=== PATIENT | male | born 1945 | race Caucasian/White ===

== ENCOUNTER 2020-01-24 13:31 | Outpatient (CLI) | payer MEDICARE, SELFPAY ==
--- NOTE | 2020-01-24 13:36 | ECG_ITS ---
Measurements Intervals [place] Rate: 70 P: 39 [place]: 189 QRS: -59 QRSD: 104 T: 76 QT: 380 QTc: 410 Interpretive Statements SINUS RHYTHM LEFT ANTERIOR FASCICULAR BLOCK BORDERLINE ST ABNORMALITY- HIGH LATERAL LEADS BASELINE WANDER- V2 ABNORMAL ECG Electronically Signed On 01-24-2020 15:26:03 CDT by Mario Tirado D.O.
[2020-01-24 14:13] LABS: Anion Gap 5 mmol/L (8-16); Blood Urea Nitrogen 14 mg/dL (9-20); Calcium 9.4 mg/dL (8.4-10.2); Carbon Dioxide 31 mmol/L (22-30); Chloride 102 mmol/L (98-107); Estimated Glomerular Filt Rate > 60; Glucose 109 mg/dL (75-110); Potassium 4.3 mmol/L (3.4-5.0); Sodium 138 mmol/L (137-145)
== END 2020-01-24 13:32 | disposition home or self-care (01) ==
PROVIDERS: PCP Internal Medicine; Visit Provider Orthopaedic Surgery
DX: I10 Essential (primary) hypertension (principal); I44.4 Left anterior fascicular block; R94.31 Abnormal electrocardiogram [ECG] [EKG]
CPT/HCPCS: 36415; 80048; 93005

== ENCOUNTER 2020-01-26 00:56 | Outpatient (CLI) | payer MEDICARE, SELFPAY ==
[2020-01-26 20:48] LABS: SARS-CoV-2 RNA PCR Negative
== END 2020-01-26 00:57 | disposition home or self-care (01) ==
LOC: ANHCOVIDDT 00:57
PROVIDERS: PCP Internal Medicine; Visit Provider Orthopaedic Surgery
DX: Z01.812 Encounter for preprocedural laboratory examination (principal); Z11.59 Encounter for screening for other viral diseases
CPT/HCPCS: 87635; C9803; U0003

== ENCOUNTER 2020-01-28 00:15 | Day surgery (SDC) | payer MEDICARE, SELFPAY ==
[2020-01-24 08:36] VITALS: BMI 37.1
[2020-01-28] VITALS (7 sets, daily range): BP systolic 101–132; BP diastolic 51–78; PULSE 62–81; RESP 13–20; TEMP 35.9–36.1; O2SAT 93–98
--- NOTE | 2020-01-28 07:21 | P.PNAN_ITS ---
Anes - Initial Pre Proc Eval Procedure: Operation Date: 01/28/20 08:00 Proposed Procedures p Left Shoulder Arthroscopic Rotator Cuff Repair - Jonnathan Becker MD Date/Time: 01/28/20 07:21 Surgeon: Jonnathan Becker MD Pre Op Diagnosis: Left Rotator Cuff Tear Patient Data Age: 74 Gender: M Height: 6 ft Weight: 124.3 kg Last Vital Signs Temp 35.9 C L 01/28/20 07:19 Pulse 62 01/28/20 07:19 BP 132/78 01/28/20 07:19 Pulse Ox 97 01/28/20 07:19 Allergies Allergy/AdvReac Type Severity Reaction Status Date / Time codeine Allergy Unknown Nausea and Verified 01/24/20 12:57 Vomiting Home Medications Medication Instructions Recorded Confirmed Type leflunomide 20 mg tablet 20 mg PO DAILY 10/25/19 01/24/20 History tramadol 50 mg tablet 50 mg PO Q6H PRN 10/25/19 01/28/20 History fluoxetine 20 mg PO QAM 01/24/20 01/28/20 History furosemide 20 mg PO DAILY 01/24/20 01/28/20 History lisinopril 10 mg PO QAM 01/24/20 01/28/20 History metformin 500 mg PO QAM 01/24/20 01/28/20 History metoprolol succinate 25 mg PO QAM 01/24/20 01/28/20 History rosuvastatin 5 mg PO DAILY 01/24/20 01/28/20 History tamsulosin 0.4 mg PO DAILY 01/24/20 01/28/20 History Patient hx anesthesia problems: none Family hx anesthesia problems: none [facility] Past Medical History Medical History Arthritis Fibromyalgia Glaucoma Neuropathy Psoriasis Psoriatic arthritis Rotator cuff tear, left Spinal stenosis Tendonitis of left rotator cuff Surgical History Surgical History History of arthroscopic knee surgery (~2008) History of carpal tunnel release (~1993) History of cholecystectomy (~1998) History of knee replacement (~2012) Family History Family History Father Family history of lung cancer Social History Social History Smoking status: Never smoker Alcohol intake: current Alcohol use details: 3 BEERS PER MONTH Living arrangements: with family Spiritual care concerns: No Anes - Eval Final PreProcedure Day of Procedure 01/28/20 07:21 Patient weight: obese Heart: regular rate and rhythm Lungs: clear to auscultation Airway: Mallampati scale class 1 Neurological: alert and oriented Last oral intake: >/= 8 hours ASA classification: III Emergent: no Anesthetic plan: proceed Anesthesia type and monitoring: general ETT and standard monitoring Informed Consent: The patient's anesthetic plan and its attendant risks and benefits were discussed with the patient/family/POA. Questions were solicited and answers provided to the satisfaction of the patient/family/POA.
[2020-01-28] MEDS: LACTATED RINGERS 1,000 ML 30 ML IV CONT ×2 (07:27→09:58)
[2020-01-28] MEDS: ACETAMINOPHEN 500 MG TABLET 1000 MG PO (07:38)
[2020-01-28] MEDS: KETOROLAC 15 MG/ML VIAL (*BKC) IV PUSH (07:38)
--- NOTE | 2020-01-28 07:39 | WPDHPUPDATE1 ---
History and Physical Update Update Date/Time: 01/28/20 07:39 History and Physical has been reviewed, including an updated exam of the patient. There are NO changes in the patient's condition. Risks, benefits, and alternatives have been discussed and questions answered. Patient agrees to proceed with procedure.
--- NOTE | 2020-01-28 07:53 | WPDANESPNB ---
Anes - Peripheral Nerve Block Date/Time: 01/28/20 07:53 I have discussed with the patient/family/POA the placement of a peripheral nerve block for post-operative pain management, including associated risks, benefits, complications, and side effects. Alternative methods of post-operative analgesia were detailed. Questions were solicited and answers provided to the satisfaction of the patient/family/POA. Time-Out: A pre-procedural Time-Out was completed immediately before starting the procedure and confirmed: Patient Identification, Site, Procedure, Patient Position and the Availability of Requisite Equipment. Clinical Indications: Acute post-operative pain management requested by the operative surgeon. Nerve Block Insertion Note Anes-nerve block: interscalene left Patient position: other (sitting) Skin prep: chlorhexidine Needle: 22 gauge, stimulating, insulated echogenic needle. Needle length: 50 mm Technique: nerve stimulation lost at (mA) (0.3) Technique comment: mid2mg,[id number] Injectate: bupivacaine 0.5% with epi 5 mcg/ml (30ml) Observations: tolerated well Complications: none Procedure start time:: 739 Procedure end time:: 745
[2020-01-28] MEDS: ceFAZolin 3 GM/D5W 100 ML 100 ML IVPB (07:58)
[2020-01-28] MEDS: BUPIVACAINE/EPINEPHRINE 0.5% 30 ML VIAL INFILTRATE (08:38)
--- NOTE | 2020-01-28 10:27 | P.OP_ITS ---
Procedure Note - Detailed Date of procedure: 01/28/20 Pre-op diagnosis: Left Rotator Cuff Tear Post-op diagnosis: other (1. Partial-thickness rotator cuff tear. 2. biceps tendinopathy. 3. Impingement syndrome.) Procedure performed: 1. Arthrosocopic rotator cuff repair. 2. Arthroscopic biceps tenotomy. 3. Arthroscopic subacromial decompression. Description of procedure: Extensive debridement was performed of the intra- articular biceps which was frayed and partially torn. Tenotomy was performed. The articular subscapularis and supraspinatus showed only mild splitting without definite tearing. Extensive thickened bursa was excised in the subacromial space along with decompression of the acromion and Co planing of the distal clavicle. High [place] grade partial-thickness tearing of the bursal side rotator cuff medial and anterior was repaired with 2 [id number] sutures. This area appeared to correspond with impingement at the anterior acromion. The remaining lateral rotator cuff, supraspinatus, and posterior cuff appeared normal. Anesthesia: GETA Surgeon: Jonnathan Becker MD Estimated blood loss (mL): 20 Complications: None Condition: stable Disposition: PACU Findings: Operative detail: Preoperative antibiotics were given. An interscalene block was administered in the preoperative area. The patient was bought brought to the operating room. A general anesthetic was administered. The patient was carefully positioned in the beach chair position. The head and neck were carefully positioned. The non operative extremity was also carefully positioned. The shoulder was prepped and draped in the usual sterile fashion. Examination was performed. Standard posterior and anterior arthroscopic portals were established. Inflow achieved with the arthroscopic pump using saline and epinephrine. The glenohumeral joint was carefully inspected. The biceps showed extensive fraying. A tenotomy was performed. The subacromial. The subscapularis showed mild longitudinal splitting without significant detachment or retraction.. Attention was turned to the subacromial space. A complete bursectomy was performed. Tissue was quite thickened particularly anteromedially. There appeared to be significant impingement and some downsloping of the anterior acromion. Previous acromioplasty was noted. A modest acromioplasty was performed. The distal clavicle was also co planed, as this area appeared to be generally involved in some degree of impingement. The tear was mid grade splitting of the more anterior and medial tissue. Two ortho cord sutures were passed [id number] through the tendon. An anterior grade passing device was used followed by retrograde suture retrieval. Accessory portals were placed laterally and to assist with triangulation. The sutures were tied arthroscopically. The arthroscopic instruments were removed. The wounds were closed with 3-0 Monocryl subcuticular suture and steri strips. There were no complications. A sling was applied and the patient brought to the recovery room.
--- NOTE | 2020-01-28 11:22 | SUR.PHASEII ---
PT ASSISTED TO GET DRESSED; ONE RN HOLDING LEFT ARM.
== END 2020-01-28 11:31 | disposition home or self-care (01) ==
PROVIDERS: PCP Internal Medicine; Visit Provider Orthopaedic Surgery
PROC: (CPT 29805; principal; 2020-01-28 08:00)
DX: M75.102 Unspecified rotator cuff tear or rupture of left shoulder, not specified as traumatic (principal); M75.82 Other shoulder lesions, left shoulder; M75.42 Impingement syndrome of left shoulder; G89.18 Other acute postprocedural pain; M79.7 Fibromyalgia; G62.9 Polyneuropathy, unspecified; H40.9 Unspecified glaucoma; L40.9 Psoriasis, unspecified; L40.50 Arthropathic psoriasis, unspecified; Z79.84 Long term (current) use of oral hypoglycemic drugs; E66.9 Obesity, unspecified; Z68.37 Body mass index [BMI] 37.0-37.9, adult
CPT/HCPCS: 29827; 29826; 29823; 64415; A4565; A9270; J0690; J1100; J1170; J1885; J2250; J2370; J2405; J2704; J2710; J3010; J7120

== ENCOUNTER 2023-08-06 11:00 | Outpatient (CLI) | payer MEDICARE, SELFPAY ==
--- NOTE | ~2023-08-06 | XR_ITS ---
Left Shoulder Technique: AP and scapular Y views were obtained. Clinical History: Pain Findings: No fracture or dislocation is seen. Osseous alignment is anatomic. The glenohumeral and acr omioclavicular joint spaces are preserved. Soft tissues are unremarkable. Impression: Unremarkable left shoulder radiographs. Reviewed, dictated and finalized at [facility]. Impression: Unremarkable left shoulder radiographs.
== END 2023-08-06 11:01 | disposition home or self-care (01) ==
PROVIDERS: PCP Family Medicine; Visit Provider Orthopaedic Surgery
DX: M75.82 Other shoulder lesions, left shoulder (principal)
CPT/HCPCS: 73030

== ENCOUNTER 2024-02-19 10:38 | Outpatient (CLI) | payer MEDICARE, SELFPAY ==
--- NOTE | ~2024-02-19 | XR_ITS ---
XR elbow RT min 3V Ordering provider: Jonnathan Becker History: . FALL IN OCTOBER, PAIN . Comparison: July 01, 2013 FINDINGS: BONES: No acute fracture or dislocation. Bone defect seen in the proximal radius with postoperative c hanges. JOINT SPACES: Osteoarthritic changes. Ossification of the insertion of the triceps tendon. SOFT TISSUES: Unremarkable. No definite joint effusion. IMPRESSION: No acute osseous abnormality of the right elbow. Reviewed, dictated and finalized at location A.
--- NOTE | ~2024-02-19 | XR_ITS ---
XR elbow LT min 3V Ordering provider: Jonnathan Becker History: . FALL IN OCTOBER, POSTERIOR NONHEALING LAC. PAIN . Comparison: None. FINDINGS: BONES: No acute fracture or dislocation. JOINT SPACES: Narrowing of the joint space. SOFT TISSUES: Normal. No definite joint effusion. Ossification of the insertion of the triceps in the ulna. IMPRESSION: No definite acute osseous abnormality left elbow. Reviewed, dictated and finalized at location A.
--- NOTE | ~2024-02-19 | XR_ITS ---
XR shoulder LT min 2V Ordering provider: Jonnathan Becker MD History: . M75.82 - Other shoulder lesions, left shoulder . Comparison: August 06, 2023 FINDINGS: BONES: No acute fracture or dislocation. Degenerative changes in the greater tuberosity area. JOINT SPACES: The acromioclavicular joint shows osteoarthritic changes.. The glenohumeral joint is no rmal. SOFT TISSUES: Normal. IMPRESSION: No acute osseous abnormality left shoulder. Reviewed, dictated and finalized at location A.
== END 2024-02-19 10:39 | disposition home or self-care (01) ==
PROVIDERS: PCP Family Medicine; Visit Provider Orthopaedic Surgery
DX: M75.82 Other shoulder lesions, left shoulder (principal); M25.521 Pain in right elbow; M25.522 Pain in left elbow
CPT/HCPCS: 73030; 73080

== ENCOUNTER → 2024-03-04 11:02 | Outpatient (CLI) | payer MEDICARE, SELFPAY ==
--- NOTE | ~2024-03-04 | XR_ITS ---
Left Knee Technique: AP, lateral, and sunrise views were obtained. Clinical History: Osteoarthritis Findings: No fracture or dislocation is seen. Osseous alignment is anatomic. There is mild tricompart mental degenerative change. Small joint effusion is seen. Impression: Mild tricompartmental degenerative change. Small joint effusion. Reviewed, dictated and finalized at [facility]. Impression: Mild tricompartmental degenerative change. Small joint effusion.
== END ==
PROVIDERS: PCP Family Medicine; Visit Provider Orthopaedic Surgery
DX: M17.12 Unilateral primary osteoarthritis, left knee (principal); M25.462 Effusion, left knee
CPT/HCPCS: 73564